=== PATIENT | male | born 1965 | race Caucasian/White ===

== ENCOUNTER 2023-01-05 11:00 | Emergency (ER) | payer BC, SELFPAY ==
[2023-01-05 11:03] VITALS: BP 142/86; PULSE 75; RESP 18; TEMP 36.2; O2SAT 99; BMI 32.1
--- NOTE | 2023-01-05 11:37 | ED_ITS ---
HPI - General Adult General Date Seen: 01/05/23 Chief complaint: Skin/Abscess/Foreign Body Stated complaint: ultrasound of left side of face Time Seen by Provider: 01/05/23 11:07 Source: patient Mode of arrival: ambulatory Limitations: no limitations History of Present Illness HPI narrative: Patient is a 57-year-old male who presents for evaluation of swelling by his left jaw. This developed a couple of days ago and has been getting worse. He has redness overlying which extends down to his neck. He has not had fevers or chills, has felt somewhat fatigued. The area is painful particularly when he chews. No history of similar symptoms. No other swelling or masses. Seen in clinic and referred here. General health is good, only medication is clear 10. He does not smoke or drink. No known allergies. Related Data Home Medications Medication Instructions Recorded Confirmed betamethasone dipropionate 0.05 % topical 01/05/23 01/05/23 lotion fluticasone propionate intranasal 01/05/23 fluticasone propionate 50 intranasal 01/05/23 01/05/23 mcg/actuation nasal spray,suspension loratadine 10 mg tablet 10 mg PO DAILY 01/05/23 01/05/23 pimecrolimus 1 % topical cream applic topical 01/05/23 01/05/23 Previous Rx's Medication Instructions Recorded amoxicillin 875 mg-potassium 1 tab PO BID 10 days #20 tabs 01/05/23 clavulanate 125 mg tablet Allergies Allergy/AdvReac Type Severity Reaction Status Date / Time environmental allergies Allergy Mild sneezing Uncoded 01/05/23 09:28 Review of Systems Status of ROS: Reports: 10 or more systems reviewed and unremarkable except as noted in History and below [facility] Medical History Swelling of left parotid gland ?R60.0 - Localized edema (ICD-10) Social History Smoking Status: Never smoker How often do you have a drink containing alcohol: never How often do you have six or more drinks on one occasion: Never AUDIT-C Alcohol total score: 0 Non-prescribed substance use: denies use Exam Narrative: Exam Narrative: Vital signs reviewed. He is afebrile. In general, an alert, nontoxic male. Voice is normal. Eyes: Sclera clear. ENT: Nares are clear. Dentition intact, throat is normal. At the angle of the left jaw he has swelling, redness and tenderness. There is some erythema which extends down over the anterior neck. There is no crepitus or subQ air. No fluctuance. Airways patent. No purulent drainage. Neck: Supple, no other adenopathy or masses. Skin: Warm and dry. Erythema as described above. No other rash or lesion. Const: Vital Signs, click to edit/add: Vital Signs - 24 hr 01/05/23 11:03 01/05/23 12:13 01/05/23 13:23 Temperature 97.1 F L Pulse Rate [Pulse Oximeter] 75 69 80 Respiratory Rate 18 Blood Pressure [Ri ght Upper Arm] 142/86 H 123/85 128/83 Pulse Oximetry 99 95 96 Oxygen Delivery Me thod Room Air Room Air Room Air Documenting provider has reviewed patient's vital signs: yes Course Course Hospital Course: Exam is consistent with parotitis, with overlying erythema I suspect that this is bacterial rather than viral, though viral causes not entirely ruled out. Systemically he does not have any complaints, he looks well here. I am going to get a few labs just for baseline purposes and then will treat with antibiotics. We will do an ultrasound to evaluate for possible obstructing stone, rule out abscess. Ultrasound read as showing a prominent parotid gland but without evidence of ductal dilation, obvious stone or abscess. I gave a dose of Rocephin here. I did discuss his care with Dr. Salmon as well, would recommend primary care follow-up for recheck in a couple of days. Discussed with him that if at any time he has acute worsening, significant worsening redness, pain, new symptoms such as fever, chills, vomiting, return to the emergency department for re- evaluation. Ibuprofen or Tylenol as needed for pain. Augmentin as prescribed. Vital Signs Vital signs: Initial Vital Signs Temperature 97.1 F L 01/05/23 11:03 Temperature Source Temporal Artery Scan 01/05/23 11:03 Pulse Rate 75 01/05/23 11:03 Respiratory Rate 18 01/05/23 11:03 Blood Pressure 142/86 H 01/05/23 11:03 Blood Pressure Mean 104 01/05/23 11:03 Blood Pressure Position Supine 01/05/23 11:03 Pulse Oximetry 99 01/05/23 11:03 Oxygen Delivery Method Room Air 01/05/23 11:03 Vital Signs Temperature 97.1 F L 01/05/23 11:03 Pulse Rate 75 01/05/23 11:03 Respiratory Rate 18 01/05/23 11:03 Blood Pressure 142/86 H 01/05/23 11:03 Pulse Oximetry 99 01/05/23 11:03 Oxygen Delivery Method Room Air 01/05/23 11:03 Temperature 97.1 F L 01/05/23 11:03 Pulse Rate 80 01/05/23 13:23 Respiratory Rate 18 01/05/23 11:03 Blood Pressure 128/83 01/05/23 13:23 Pulse Oximetry 96 01/05/23 13:23 Oxygen Delivery Method Room Air 01/05/23 13:23 Medical Decision Making Lab Data Labs: Lab Results 01/05/23 Range/Units 11:40 WBC 10.17 (4.50-11.00) K/uL RBC 5.31 (4.30-5.90) m/uL Hgb 14.9 (13.5-17.5) gm/dL Hct 44.5 (37.0-53.0) % MCV 84 (80-100) fL MCH 28 (26-34) pg MCHC 34 (32-36) gm/dL RDW Coeff of Campbell 12.1 (11.5-15.5) % Plt Count 211 (140-440) K/uL Neut % (Auto) 70.6 (42.0-72.0) % Lymph % (Auto) 19.1 L (20-44) % [place] % (Auto) 8.3 (0.0-11.0) % Eos % (Auto) 1.5 (0.0-7.0) % Baso % (Auto) 0.4 (0.0-3.0) % Neut # (Auto) 7.19 H (1.7-7.0) K/uL Lymph # (Auto) 1.90 (0.90-2.90) K/uL [place] # (Auto) 0.80 (0.00-0.90) K/UL Eos # (Auto) 0.15 (0.00-0.50) K/uL Baso # (Auto) 0.04 (0.00-0.30) K/uL Sodium 138 (135-149) mmol/L Potassium 4.2 (3.6-5.1) mmol/L Chloride 101 (96-114) mmol/L Carbon Dioxide 29 (20-32) mmol/L BUN 13 (7-30) mg/dL Creatinine 1.0 (0.5-1.5) mg/dL Estimated Creat Clear 86.80 Estimated GFR 88 ml/min Glucose 87 (60-115) mg/dL Calcium 9.2 (8.4-10.6) mg/dL C-Reactive Protein 6.5 H (0.5-1.0) mg/dL Discharge Plan Discharge Clinical Impression: Acute parotitis Patient Disposition: Home w/ Parent or Adult Condition: Stable Instructions: Adenitis (ED) Additional Instructions: Antibiotics as prescribed. If no improvement over the next 24-48 hours, or at any time if significant worsening such as fevers, shaking chills, severe pain, significant worsening of redness, return to the emergency department. Note that redness sometimes gets slightly worse over the 1st 24 hours on antibiotics. Ibuprofen or Tylenol if needed for pain. Prescriptions: No Action loratadine 10 mg tablet 10 mg PO DAILY Patient Comments: TAKE 1 TABLET BY MOUTH DAILY fluticasone propionate 50 mcg/actuation spray,suspension intranasal Patient Comments: [NO ORIGINAL SIG] pimecrolimus 1 % cream topical Patient Comments: [NO ORIGINAL SIG] betamethasone dipropionate 0.05 % lotion topical Patient Comments: [NO ORIGINAL SIG] amoxicillin-pot clavulanate 875-125 mg tablet 1 tab PO BID 10 Days Qty: 20 0RF fluticasone propionate [Flonase Allergy Relief] intranasal Follow Up/Referrals: Provider,Not a Local [Primary Care Provider] - Stand Alone Forms: [employer] Info Instructions
--- NOTE | 2023-01-05 11:46 | CRLHL7_ITS ---
For Patients: As a result of the Century Cures Act, medical imaging exams and procedure reports are released immediately into your electronic medical record. You may view this report before your referring provider. If you have questions, please contact your health care provider. Indication: Left facial swelling and redness. Technique: Real-time grayscale images were obtained with static images saved for review. Comparison: None Findings: No focal fluid collections are identified. Hypoechoic intra parotid lesions are seen measuring less than 1 centimeter. No parotid duct dilatation seen. Impression: No focal fluid collection or parotid duct dilatation. Small hypoechoic sub centimeters within the parotid noted, likely intraparotid lymph nodes. Dictated by Umer Zamorano MD @ 01/05/2023 1:19:42 PM (Electronically Signed)
--- OUTSIDE RECORDS SUMMARY | 2023-01-05 11:50 | XMS_ITS | Patient Health Record ---
Author Name Unknown Organization [facility] Address [address] [place], [place] [id number] Care Team Providers Care Mail Service Coordinator Name Role Phone Wilda Hernandez Unavailable [phone] [employer], Provider Unavailable PROBLEMS Type Condition ICD9-CM Code [id number] Code Onset Dates Condition Status W/U Status Risk SNOMED Code Notes Problem Seasonal allergies J30.2 confirmed [id number] ALLERGIES No Known Allergies ENCOUNTERS from 1965 to 2023-01-05 Encounter Location Date Provider Diagnosis [facility] [address] [place], [place] [phone] Feb, Wilda Hernandez Rash R21 [facility] [address] [place] [id number] Jul, Robel Melendez Dietary surveillance and counseling Z71.3 ; Seasonal allergies J30.2 and Screen for colon cancer Z12.11 [facility] [address] [phone] Jul, Provider [employer] [facility] [address] [place] [phone] Apr, Robel Melendez Tinea cruris B35.6 and Tinea pedis of both feet B35.3 IMMUNIZATIONS Vaccine Route Administration Date Status Tdap (Boostrix 7 years & older ) Unknown October Administered SOCIAL HISTORY Tobacco Use: Social History Observation Description Date Details (start date - stop date) Never Smoker Sex Assigned At : Social History Observation Description Sex Assigned At Unknown Tobacco Status Question Answer Notes I am: never smoker REASON FOR REFERRAL from 1965 to 2023-01-05 Reason screening colonoscop y Diagnosis 1 Screen for colon can cer (Z12.11) Referral Organization [facility] Referring Provider First Name Robel Referring Provider Last Name Nora Referring Provider Specialty Family Prac nilesh Referred Provider Specialty Gastroentero logy Referral Priority Routine General Notes Regla Hall 07/13 9:46:12 AM >Sent Referral VITAL SIGNS from 1965 to 2023-01-05 Height 70.25 in Jul, Weight 238 lbs Feb, BMI 33.28 kg/m2 Jul, Temperature 97.7 degrees Fahrenheit Feb, Oximetry 96 Feb, Blood pressure systolic 112 mm Hg Feb, Blood pressure diastolic 82 mm Hg Feb, MEDICATIONS Medication SIG (Take, Route, Frequency, Duration) Notes Start Date End Date Status Fluocinonide 0.05 % 1 jordan applied topically 2 times a day as needed Active Fluticasone Propionate 50 MCG/ACT 1 spray in each nostril Nasally Once a day for 30 day(s) Active Betamethasone Dipropionate 0.05 % 1 jordan applied topically 2 times a day for 14 day(s) as needed Active Elidel 1 % 1 jordan applied topically 2 times a day as needed Active Calcipotriene 0.005 % 1 jordan applied topically 2 times a day for 14 day(s) as needed Active RESULTS from 1965 to 2023-01-05 Component Value Reference Range Notes Colonoscopy Reviewed date:10/03/2021 14:55:42 Interpretation:5 years Performing Lab: Notes/Report: REASON FOR VISIT No Information MEDICAL (GENERAL) HISTORY Type Description Date Medical History Psoriasis Surgical History No Surgical history information MENTAL STATUS No Information ASSESSMENTS Encounter Date Diagnosis Assessment Notes Treatment Notes Treatment Clinical Notes Feb, Rash (ICD-10 - R21) Enoch ortiz presents for evaluation of a lesion of his left anterior thigh. He notes he noticed it on Thursday and it is very itchy lesion. Not sure if he has had any bug bites. Lesion appears to be consistent with a dermatitis secondary to a bug bite. There are no signs of tick bites or target lesions. Also reviewed that typically rash associated with Lyme's disease is not pruritic. I recommended that he use topical hydrocortisone and keep the skin clean. He should also follow-up monitor for spreading of the redness or swelling. Should follow-up if having worsening pain, body aches, fever, chills or headaches. Jul, Seasonal allergies (ICD-10 - J30.2) Sx stable on flonase and claritin. Warned to call back if worsens or not improved., Medication effects, side effects and interactions reviewed with patient. Questions were answered. Patient to call with any problems. Jul, Dietary surveillance and counseling (ICD-10 - Z71.3) Jul, Screen for colon cancer (ICD-10 - Z12.11) referral sent Jul, Other healthy living Learning About Healthy Weight material was printed Apr, Tinea cruris (ICD-10 - B35.6) Etiology discussed. Treatment options and anticipated course reviewed, based on lack of OTC response, will trial PO and topical antifungal. Warned to call back if worsens or not improved., Medication effects, side effects and interactions reviewed with patient. Questions were answered. Patient to call with any problems. Apr, Tinea pedis of both feet (ICD-10 - B35.3) see above PLAN OF TREATMENT Medication Medication Name Sig Start Date Stop Date Fluticasone Propionate 50 MCG/ACT 1 spra y in each nostril Nasally Once a day for 30 day(s) Treatment Notes Assessment Notes Clinical Notes Seasonal allergies Sx stable on flonase and claritin. Warned to call back if worsens or not improved., Medication effects, side effects and interactions reviewed with patient. Questions were answered. Patient to call with any problems. Rash Yeah patient present s for evaluation of a lesion of his left anterior thigh. He notes he noticed it on Thursday and it is very itchy lesion. Not sure if he has had any bug bites. Lesion appears to be consistent with a dermatitis secondary to a bug bite. There are no signs of tick bites or target lesions. Also reviewed that typically rash associated with Lyme's disease is not pruritic. I recommended that he use topical hydrocortisone and keep the skin clean. He should also follow-up monitor for spreading of the redness or swelling. Should follow-up if having worsening pain, body aches, fever, chills or headaches. Tinea cruris Etiology discussed. Treatment options and anticipated course reviewed, based on lack of OTC response, will trial PO and topical antifungal. Warned to call back if worsens or not improved., Medication effects, side effects and interactions reviewed with patient. Questions were answered. Patient to call with any problems. Screen for colon cancer referral sent Tinea pedis of both feet see above Referrals Referral Date Details screening colonoscop y Next Appt Details prn, If not improving or if symptoms are worsening. Reason: Insurance Providers Payer Name Payer Address Payer Phone Insured Name Patient Relationship to Insured Coverage Start Date Coverage End Date Subscriber Number Group Number [facility] [address] [address] [facility] [id number] Braden Roque Self - patient is the insured 2021 [id number]
[2023-01-05 11:52] LABS: Basophils Absolute Auto 0.04 K/uL (0.00-0.30); Basophils Percent Auto 0.4 % (0.0-3.0); Eosinophils Absolute Auto 0.15 K/uL (0.00-0.50); Eosinophils Percent Auto 1.5 % (0.0-7.0); Hematocrit 44.5 % (37.0-53.0); Hemoglobin* 14.9 gm/dL (13.5-17.5); Immature Granulocytes Abs Auto 0.01 K/uL (0.00-0.30); Immature Granulocytes Pct Auto 0.1 %; Lymphocytes Percent Auto 19.1 % (20-44); Mean Corpuscular HGB Conc 34 gm/dL (32-36); Mean Corpuscular Hemoglobin 28 pg (26-34); Mean Corpuscular Volume 84 fL (80-100); Monocytes Percent Auto 8.3 % (0.0-11.0); Neutrophils Absolute Auto 7.19 K/uL (1.7-7.0); Neutrophils Percent Auto 70.6 % (42.0-72.0); Platelet Count* 211 K/uL (140-440); RDW Coefficient of Variation % 12.1 % (11.5-15.5); Red Blood Count 5.31 m/uL (4.30-5.90); White Blood Count* 10.17 K/uL (4.50-11.00)
[2023-01-05 11:58] LABS: Slide Review Reflex No
[2023-01-05 12:12] LABS: Chloride* 101 mmol/L (96-114); Potassium* 4.2 mmol/L (3.6-5.1); Sodium* 138 mmol/L (135-149)
[2023-01-05 12:13] VITALS: BP 123/85; PULSE 69; O2SAT 95
[2023-01-05 12:15] LABS: Carbon Dioxide* 29 mmol/L (20-32); Estimated Glomerular Filt Rate 88 ml/min
[2023-01-05 12:16] LABS: Blood Urea Nitrogen* 13 mg/dL (7-30); Calcium* 9.2 mg/dL (8.4-10.6); Glucose* 87 mg/dL (60-115)
[2023-01-05 12:19] LABS: C Reactive Protein* 6.5 mg/dL (0.5-1.0)
[2023-01-05] MEDS: cefTRIAXone 1 GM in 0.9 % SODIUM CHLORIDE Mini-bag 100 ML IVPB (12:36)
[2023-01-05 13:23] VITALS: BP 128/83; PULSE 80; O2SAT 96
== END 2023-01-05 13:30 | disposition home or self-care (01) ==
PROVIDERS: Emergency Provider Emergency Medicine
DX: K11.21 Acute sialoadenitis (principal)
CPT/HCPCS: 36415; 76536; 80048; 85025; 86140; 87040; 96365; 99284; J0696

== ENCOUNTER 2023-06-30 06:56 | Outpatient (CLI) | payer BC, SELFPAY ==
--- OUTSIDE RECORDS SUMMARY | 2023-06-30 06:59 | XMS_ITS | Patient Health Record ---
Author Name Unknown Organization [facility] Address [address] [phone] Care Team Providers Care Courier Driver Name Role Phone SELECT, PROVIDER Primary Care Provider Unavailab le ALLERGIES No Known Allergies REASON FOR REFERRAL No Information MEDICATIONS Medication SIG (Take, Route, Frequency, Duration) Notes Start Date End Date Status Elidel 1 % 1 jordan applied topically 2 times a day as needed Active Fluocinonide 0.05 % 1 jordan applied topically 2 times a day as needed Active Betamethasone Dipropionate 0.05 % 1 jordan applied topically 2 times a day for 14 day(s) as needed Active Calcipotriene 0.005 % 1 jordan applied topically 2 times a day for 14 day(s) as needed Active Fluticasone Propionate 50 MCG/ACT 1 spray in each nostril Nasally Once a day for 30 day(s) Active IMMUNIZATIONS Vaccine Route Administration Date Status Comme nts Tdap (Boostrix 7 years & older ) Unknown 10/31/2012 Adm inistered SOCIAL HISTORY Tobacco Use: Social History Observation Description Date Details (start date - stop date) Never Smoker NA - NA Sex Assigned At : Social History Observation Description Sex Assigned At Unknown Tobacco Status Question Answer Notes I am: never smoker PROBLEMS Problem Type ICD Code Onset Dates Problem Status W/U Status Risk SNOMED Code Notes Problem Seasonal allergies (J30.2) Active confirmed [id number] PLAN OF TREATMENT No Information Insurance Providers Payer Name Payer Address Payer Phone Subscriber Number Group Number Insured Name Patient Relationship to Insured Coverage Start Date Coverage End Date [facility] [address] [address] [place] [phone] [id number] Long Roque Self - patient is the insured 2 MEDICAL (GENERAL) HISTORY Medical History History ICD Code Psoriasis Surgical History Surgery Date(Month/Year)
== END 2023-06-30 06:57 | disposition home or self-care (01) ==
PROVIDERS: Visit Provider Family Medicine
DX: Z00.00 Encounter for general adult medical examination without abnormal findings (principal); Z13.6 Encounter for screening for cardiovascular disorders; Z13.1 Encounter for screening for diabetes mellitus; Z11.59 Encounter for screening for other viral diseases; Z12.5 Encounter for screening for malignant neoplasm of prostate
CPT/HCPCS: 80053; 80061; 84153; 86803

== ENCOUNTER 2024-08-01 14:06 | Outpatient (CLI) | payer OTHER, SELFPAY | END 2024-08-01 14:07 | disposition home or self-care (01) | PROVIDERS: PCP Family Medicine; Visit Provider Family Medicine | DX: L98.9 Disorder of the skin and subcutaneous tissue, unspecified (principal); L40.9 Psoriasis, unspecified; G47.30 Sleep apnea, unspecified; Z13.6 Encounter for screening for cardiovascular disorders | CPT/HCPCS: 80053; 80061 ==